=== PATIENT | female | born 1980 | race Caucasian/White ===

== ENCOUNTER 2022-04-12 08:34 | Emergency (ER) | payer MEDICARE, OTHER ==
[~2022-04-12] VITALS: Ht 157.5 cm; Wt 49.9 kg
[2022-04-12 09:29] LABS: HEMATOCRIT 37.6 % (31.2-41.9); MEAN CORPUSCULAR HEMOGLOBIN 33.8 uug (24.7-32.8); MEAN CORPUSCULAR VOLUME 100.4 fL (75.5-95.3); PLATELET COUNT (AUTO) 228 K/uL (179-408)
[2022-04-12] MEDS ORDERED: CITA10TA17 PO (09:45)
[2022-04-12] MEDS ORDERED: NIFE-34 PO (09:45)
[2022-04-12 10:06] LABS: BILIRUBIN,TOTAL 0.6 mg/dL (0.2-1.0); POTASSIUM 5.1 mmol/L (3.5-5.1); TOTAL PROTEIN, SERUM 7.8 g/dL (6.4-8.2)
[2022-04-12 10:08] LABS: CREATININE 11.6 mg/dL (0.6-1.3)
--- NOTE | 2022-04-12 10:38 | NUR ---
[employer], WAS NOTIFIED ORDER FOR TRANS/ V U/S Arnoldo IS ON HIS WAY. Nancy
[2022-04-12 13:59] VITALS: BP 119/75
== END 2022-04-12 13:55 | disposition home or self-care (01) ==
LOC: ER 08:34
DX: K59.00 Constipation, unspecified (principal); R79.89 Other specified abnormal findings of blood chemistry; R94.31 Abnormal electrocardiogram [ECG] [EKG]; N18.6 End stage renal disease; Z99.2 Dependence on renal dialysis
CPT/HCPCS: 36415; 83690; 85025; 93005; A4663